=== PATIENT | female | born 1975 | race Caucasian/White ===

== ENCOUNTER 2018-10-22 05:54 | Inpatient (IN) | payer OTHER ==
[2018-10-08 12:39] VITALS: BMI 38.9
[2018-10-22] MEDS ORDERED: GENTAMICIN SO4 80 MG/2 ML VIAL ONE (07:12)
[2018-10-22] MEDS ORDERED: BUPIVACAINE HCL/PF 2.5 MG/ML - 30 ML VIAL IJ ONE (07:12)
[2018-10-22] MEDS ORDERED: POLYMYXIN B SULFATE 500,000 UNIT VIAL ONE (07:12)
[2018-10-22] MEDS ORDERED: PROPOFOL 20 ML ONE ×4 (07:25)
[2018-10-22] MEDS ORDERED: DEXAMETHASONE SOD PHOSPHATE/PF 10 MG/ML SDV ONE (07:25)
[2018-10-22] MEDS ORDERED: MIDAZOLAM HCL 2 MG/2 ML SINGLE DOSE VIAL ONE ×2 (07:25→07:26)
[2018-10-22] MEDS ORDERED: BUPIVACAINE HCL/PF (5 MG/ML) 30 ML VIAL IJ ONE (07:25)
[2018-10-22] MEDS ORDERED: fentaNYL CITRATE 250 MCG/5 ML VIAL ONE (07:25)
[2018-10-22] MEDS ORDERED: SUCCINYLCHOLINE CHLORIDE 200 MG/10 ML VIAL ONE (07:26)
[2018-10-22] MEDS ORDERED: ROCURONIUM BROMIDE 50 MG/5 ML VIAL ONE (07:26)
--- NOTE | 2018-10-22 08:06 | HP ---
Admitting History and Physical - Admission Chief Complaint: Morbid obesity History Source: Patient Limitations to Obtaining History: No Limitations - Past Medical History Cardiovascular: Yes: HTN ...LMP: 09/24/18 - Past Surgical History Additional Past Surgical History: Per patient: Left shoulder surgery Bilateral knee surgery Lower back surgery - Advance Directives Advance Directives: Yes: Health Care Proxy - Smoking History Smoking history: Former smoker Have you smoked in the past 12 months: No Aproximately how many cigarettes per day: 4 If you are a former smoker, when did you quit?: 2017 - Alcohol/Substance Use Hx Alcohol Use: No Home Medications - Allergies Allergies/Adverse Reactions: Allergies Allergy/AdvReac Type Severity Reaction Status Date / Time No Known Allergies Allergy Verified 10/08/18 12:31 - Home Medications Home Medications: Ambulatory Orders Hydrochlorothiazide [Hctz -] 12.5 mg PO DAILY 10/08/18 Family Disease History - Family Disease History Family History: Unremarkable Review of Systems - Review of Systems Constitutional: denies: Chills, Fever HENT: reports: No Symptoms Neck: reports: No Symptoms Cardiovascular: reports: No Symptoms Respiratory: reports: No Symptoms Gastrointestinal: reports: No Symptoms Neurological: reports: No Symptoms Pain Intensity: 0 Physical Examination Vital Signs: Vital Signs Temperature 98 F 10/22/18 06:40 Pulse Rate 78 10/22/18 06:40 Respiratory Rate 18 10/22/18 06:40 Blood Pressure 148/90 10/22/18 06:40 O2 Sat by Pulse Oximetry (%) Constitutional: Yes: Calm HENT: Yes: WNL Neck: Yes: WNL Cardiovascular: Yes: WNL Respiratory: Yes: Regular Gastrointestinal: Yes: Soft, Abdomen, Obese. No: Tenderness Neurological: Yes: Alert, Oriented Problem List - Problems (1) Morbid obesity due to excess calories Code(s): E66.01 - MORBID (SEVERE) OBESITY DUE TO EXCESS CALORIES (2) BMI 38.0-38.9,adult Code(s): Z68.38 - BODY MASS INDEX (BMI) 38.0-38.9, ADULT (3) Hypertension Code(s): I10 - ESSENTIAL (PRIMARY) HYPERTENSION Qualifiers: Hypertension type: unspecified Qualified Code(s): I10 - Essential (primary ) hypertension Assessment/Plan Laparoscopic possible open vertical sleeve gastrectomy possible liver biopsy
[2018-10-22] MEDS ORDERED: KETOROLAC TROMETHAMINE 30 MG/1 ML VIAL ONE (08:48)
[2018-10-22] MEDS ORDERED: ONDANSETRON 4 MG/2 ML VIAL ONE (08:48)
[2018-10-22] MEDS ORDERED: ceFAZolin SODIUM 1 GM VIAL ONE (08:48)
[2018-10-22] MEDS ORDERED: DEXAMETHASONE SOD PHOSPHATE 4 MG/1 ML VIAL ONE (08:48)
[2018-10-22] MEDS ORDERED: DESFLURANE GAS 240 ML BOTTLE IH ONE (09:25)
[2018-10-22] MEDS ORDERED: NEOSTIGMINE METHYLSULFATE 0.5 MG/ML - 10 ML MDV ONE (09:58)
--- NOTE | 2018-10-22 10:13 | OP ---
Operative Note - Note: Operative Date: 10/22/18 Pre-Operative Diagnosis: Morbid obesity. BMI 38.9. Hypertension Operation: Laparoscopic vertical sleeve gastrectomy, wedge liver biopsy Post-Operative Diagnosis: Same as Pre-op (as well as hepatomegaly) Surgeon: Brent Bridges Acid Supervisor: Opal Nieves Anesthesia: General Specimens Removed: Greater curvature of stomach. Liver biopsy Estimated Blood Loss (mls): 30 Drains & Tubes with Location: 36 Fr Bougie Operative Report Dictated: Yes
[2018-10-22] MEDS ORDERED: ACETAMINOPHEN 1000 MG/100 ML VIAL (NON FORMULARY) IVPB SCH (10:15)
[2018-10-22] MEDS ORDERED: SODIUM CHLORIDE 1,000 ML IV SCH (10:15)
[2018-10-22] MEDS ORDERED: METOCLOPRAMIDE HCL INJECTION 10 MG/2 ML VIAL IVPUSH SCH (10:15)
[2018-10-22] MEDS ORDERED: PROMETHAZINE HCL 25 MG/1 ML VIAL ONE (10:17)
--- NOTE | 2018-10-22 10:22 | SURG ---
Surgery Stretcher Operator Note Stretcher Operator: Opal Nieves PA-C Date of Service: 10/22/18 Diagnosis: Morbid obesity. BMI 38.9. Hypertension Procedure: Laparoscopic vertical sleeve gastrectomy, wedge liver biopsy I was present for the entirety of the operative procedure. For further detail, please refer to operative report. Visit type - Case Type Case Type: Scheduled - Emergency Emergency Visit: No - New patient This patient is new to me today: Yes Date on this admission: 10/22/18
[2018-10-22 11:01] LABS: HEMATOCRIT 42.9 % (32.4-45.2); MCH 28.9 pg (25.7-33.7); MCHC 32.7 g/dl (32.0-36.0); MEAN CELL VOLUME 88.3 fl (80-96); MEAN PLT VOLUME 8.2 fl (7.5-11.1); PLATELET COUNT 310 K/MM3 (134-434); RBC 4.86 M/mm3 (3.60-5.2); RDW 13.9 % (11.6-15.6); WHITE BLOOD COUNT 13.2 K/mm3 (4.0-10.8)
[2018-10-22] MEDS ORDERED: FAMOTIDINE 20 MG/50 ML IVPB 20 MG/50 ML MG IVPB ONE (11:04)
[2018-10-22 11:12] LABS: ALBUMIN 4.2 g/dl (3.4-5.0); ALK PHOS 61 U/L (45-117); ANION GAP 10 MMOL/L (8-16); BILIRUBIN,TOTAL 0.6 mg/dl (0.2-1); BLOOD UREA NITROGEN 17 mg/dl (7-18); CALCIUM 8.9 mg/dl (8.5-10); CHLORIDE 102 mmol/L (98-107); CO2 24 mmol/L (21-32); CREATININE 0.8 mg/dl (0.55-1.3); GLUCOSE,RANDOM 154 mg/dl (74-106); POTASSIUM 3.8 mmol/L (3.5-5.1); SGOT/AST 42 U/L (15-37); SGPT/ALT 37 U/L (13-61); SODIUM 136 mmol/L (136-145); TOT PROT 7.1 g/dl (6.4-8.2)
[2018-10-22] MEDS ORDERED: FAMOTIDINE 20 MG PREMIXED IVPB IVPB ONE (11:15)
[2018-10-22] MEDS: HYDROmorphone HCL CARPU-JECT 2 MG/1 ML DISP.SYRIN IVPB PRN ×3 (11:40→21:26)
[2018-10-22] MEDS ORDERED: HYDROmorphone HCL 0.5 MG/0.5 ML SYRINGE ONE (11:42)
[2018-10-22] MEDS ORDERED: LACTATED RINGERS SOLUTION 1,000 ML IV SCH (12:00)
[2018-10-22] MEDS: ONDANSETRON 4 MG/2 ML VIAL IVPUSH SCH ×2 (13:31→18:17)
[2018-10-22] MEDS: METOCLOPRAMIDE HCL INJECTION 10 MG/2 ML VIAL IVPUSH SCH ×2 (15:26→20:19)
[2018-10-22] MEDS: ACETAMINOPHEN 1000 MG/100 ML VIAL (NON FORMULARY) IVPB SCH (18:18)
--- NOTE | 2018-10-22 20:05 | SPEC ---
DATE OF OPERATION: 10/22/2018 SURGEON: Brent Bridges MD BANQUET FOOD SERVER: MARY Castellon PREOPERATIVE DIAGNOSES: 1. Morbid obesity. 2. Uncontrolled hypertension. 3. Body mass index of 38.9. POSTOPERATIVE DIAGNOSES: 1. Morbid obesity. 2. Uncontrolled hypertension. 3. Body mass index of 38.9. 4. Hepatomegaly. PROCEDURE: 1. Laparoscopic vertical sleeve gastrectomy. 2. Laparoscopic wedge liver biopsy. SPECIMEN: 1. Greater curvature of the stomach. 2. Liver biopsy. ESTIMATED BLOOD LOSS: 30 mL. DRAINS: None. ANESTHESIA: GET. BOUGIE SIZE: 36-Cymro. REASON FOR PROCEDURE: This is a 43-year-old female who presents to the office for weight loss options. After describing different options, she decided to proceed with a laparoscopic, possible open, vertical sleeve gastrectomy, possible liver biopsy. The risks and benefits of the procedure were explained. RISKS AND BENEFITS: After describing the different options for weight loss management, the patient decided to proceed with a laparoscopic, possible open vertical sleeve gastrectomy. The patient was seen by the respective subspecialties and cleared for surgery. The risks and benefits of the procedure were explained. These included bleeding, infection, hernia, CA, DVT, PE, injury to surrounding structures including the liver, colon, bowel, spleen, esophagus, vessel injury, nerve injury, weight regain, gastric leak, staple line leak, sleeve leak, obstruction, vitamin deficiency, hair loss and as some of the possible complications. The patient understood and signed informed consent. DESCRIPTION OF PROCEDURE: The patient was placed supine on the operating room table. The patient underwent general endotracheal intubation. The arms were brought out at 90 degrees and secured. A footboard was placed and the legs were secured laterally with padding. The abdomen was prepped and draped in the usual sterile fashion. A timeout was performed. An incision was made in the left upper quadrant and a Veress needle inserted. Pneumoperitoneum was established. Subsequently, the Veress needle was removed and a 5-mm trocar was placed under direct visualization with the laparoscope. The laparoscopic camera was then inserted and inspection of the abdominal cavity was performed. An incision was then made in the supraumbilical area and a 15-mm trocar was placed under direct visualization. A 5-mm trocar was then placed in the right upper quadrant and a 5-mm trocar was placed below the left subcostal margin. A stab wound was made in the subxiphoid area and a Bell clamp inserted and removed to dilate the tract. A Elle liver retractor was inserted. The post was secured at the bedside by the nursing staff. The patient was placed in steep reverse Trendelenburg position and the Elle liver retractor was used to secure the liver towards the anterior abdominal wall. The pylorus was identified and 6 cm proximal to it, the lesser sac was entered using the LigaSure device. All lateral attachments to the greater curvature of the stomach, including the short gastric vessels, were ligated using the LigaSure device toward the gastrosplenic and gastrophrenic ligaments. Once this was done in its entirety, it was confirmed that all tubes within the nasal or oropharyngeal cavity, including a temperature probe, was removed by Anesthesia. The bougie was then inserted by Anesthesia. Transection of the stomach was then begun staying adjacent to the bougie but away from the angularis. Transection of the stomach was performed near the portion of the stomach where the lesser sac was entered. Two laparoscopic Endo-TURNER black reg were used at this location. Laparoscopic Endo TURNER purple staple loads were then used for the remainder of the transection until the greater curvature of the stomach was fully transected. This was done staying close to the bougie. Care was taken to stay away from the angle of His cephalad. The staple line was then inspected. Hemostasis was identified. A leak test was then performed. It was clamped distally to the staple line. Irrigation solution was placed in the left upper quadrant and air was insufflated by Anesthesia into the sleeve. No leaks were identified. No obstruction was identified. This was done through the entirety of the staple line. In addition, an upper endoscopy was performed. The endoscope was placed into the patients mouth and the entirety of the esophagus, GE junction, gastric pouch and staple line were inspected. No obstruction or leak was noted. The stomach was suctioned and the endoscope removed fully intact. At this point, the irrigation solution was suctioned and again, hemostasis was noted. A wedge liver biopsy was then performed. The left lobe of the liver was identified and a portion of the edge was grasped. Using electrocautery, a wedge of the liver was excised. This was removed and sent off the field as specimen. Hemostasis at the site of the wedge liver biopsy was attained using electrocautery. The 15-mm supraumbilical trocar was then removed and the greater curvature specimen removed from the site using a sponge stick hernandez. The specimen was inspected and a Veress needle inserted. The specimen insufflated adequately and no leak was identified. The staple line was noted to be intact. A Kenneth-Rafael device was then used to close the fascia with a 0 Vicryl suture at the site. Again, hemostasis was noted. The Elle liver retractor was then removed under direct visualization. Pneumoperitoneum was desufflated and the fascial sutures were secured. Hemostasis was noted at all incision sites and Marcaine was injected at all incision sites. All incision sites were closed using 4-0 Biosyn. Sterile dressings were applied. The patient tolerated the procedure well and was transferred to the recovery room in stable condition. The patient was transferred to telemetry for further monitoring. Kenan MONROE/[id number]
[2018-10-22] MEDS: ENOXAPARIN NA (PORCINE) 40 MG/0.4 ML DISP.SYRIN SQ SCH (21:25)
[2018-10-22] MEDS: FAMOTIDINE 20 MG/50 ML IVPB 20 MG/50 ML MG IVPB SCH (21:26)
[2018-10-23] MEDS: ONDANSETRON 4 MG/2 ML VIAL IVPUSH SCH ×5 (00:09→14:26)
[2018-10-23] MEDS: ACETAMINOPHEN 1000 MG/100 ML VIAL (NON FORMULARY) IVPB SCH ×2 (00:28→06:00)
[2018-10-23] MEDS: HYDROmorphone HCL CARPU-JECT 2 MG/1 ML DISP.SYRIN IVPB PRN ×3 (02:48→09:50)
[2018-10-23] MEDS: METOCLOPRAMIDE HCL INJECTION 10 MG/2 ML VIAL IVPUSH SCH ×3 (02:49→15:30)
[2018-10-23 07:48] LABS: HEMATOCRIT 38.4 % (32.4-45.2); HEMOGLOBIN 12.8 GM/dl (10.7-15.3); MCH 29.2 pg (25.7-33.7); MCHC 33.2 g/dl (32.0-36.0); MEAN CELL VOLUME 87.8 fl (80-96); MEAN PLT VOLUME 8.4 fl (7.5-11.1); PLATELET COUNT 305 K/MM3 (134-434); RBC 4.38 M/mm3 (3.60-5.2); RDW 13.8 % (11.6-15.6)
[2018-10-23 07:52] LABS: ALBUMIN 3.6 g/dl (3.4-5.0); ALK PHOS 51 U/L (45-117); ANION GAP 8 MMOL/L (8-16); BILIRUBIN,TOTAL 0.5 mg/dl (0.2-1); BLOOD UREA NITROGEN 13 mg/dl (7-18); CALCIUM 7.9 mg/dl (8.5-10); CHLORIDE 104 mmol/L (98-107); CO2 24 mmol/L (21-32); CREATININE 0.5 mg/dl (0.55-1.3); GLUCOSE,RANDOM 91 mg/dl (74-106); POTASSIUM 3.7 mmol/L (3.5-5.1); SGOT/AST 41 U/L (15-37); SGPT/ALT 43 U/L (13-61); SODIUM 136 mmol/L (136-145); TOT PROT 6.3 g/dl (6.4-8.2)
--- NOTE | 2018-10-23 08:54 | PN ---
Progress Note (short form) - Note Progress Note: POD#1 Pt with complaints of mild epigastric burning. No CP. Nausea which resolved overnight. No emesis. OOB and ambulated in the hallway. Voiding without difficulty. Vital Signs Period Temp Pulse Resp BP Sys/Maldonado Pulse Ox Last 24 Hr 98 F-98.6 F 62-85 17-20 109-157/67-99 95-99 GEN: A&0x3, NAD CV: RRR Lungs: CTA b/l ABD: soft, non-distended, inc tenderness. Inc c/d/i LE: no calf tenderness or swelling noted b/l. SCDs in place. CBC, BMP 10/23/18 07:05 10/23/18 07:05 Laboratory Tests 10/22/18 10/22/18 10:15 10:30 WBC 13.2 H Hgb 14.0 Hct 42.9 Plt Count 310 Sodium 136 Potassium 3.8 Chloride 102 Carbon Dioxide 24 Anion Gap 10 BUN 17 Creatinine 0.8 A/P: 43 yo female s/p lap vertical sleeve gastrectomy Plan for UGI series today, npo until after exam and results negative for leak /obstruction Wean IVF once tolerating oral diet DVT ppx with ambulation, SCDs, Lovenox SQ D/w. Dr. Bridges Incentive spirometer <Glory Walls - Last Filed: 10/23/18 09:03> - Note Progress Note: Agree POD 1 Pain controlled AVSS UGI: no leak/obstruction Clears Discharge home <Brent Bridges - Last Filed: 10/23/18 11:56> Problem List - Problems (1) Morbid obesity due to excess calories Code(s): E66.01 - MORBID (SEVERE) OBESITY DUE TO EXCESS CALORIES (2) BMI 38.0-38.9,adult Code(s): Z68.38 - BODY MASS INDEX (BMI) 38.0-38.9, ADULT (3) Hypertension Code(s): I10 - ESSENTIAL (PRIMARY) HYPERTENSION Qualifiers: Hypertension type: unspecified Qualified Code(s): I10 - Essential (primary ) hypertension <Brent Bridges - Last Filed: 10/23/18 11:56>
[2018-10-23] MEDS: ENOXAPARIN NA (PORCINE) 40 MG/0.4 ML DISP.SYRIN SQ SCH (09:51)
[2018-10-23] MEDS: FAMOTIDINE 20 MG/50 ML IVPB 20 MG/50 ML MG IVPB SCH (09:51)
[2018-10-23] MEDS ORDERED: oxyCODONE HCL 5 MG TABLET PO PRN (11:54)
[2018-10-23] MEDS ORDERED: SODIUM CHLORIDE 1,000 ML IV SCH (12:00)
[2018-10-23 14:21] VITALS: BP 138/82; PULSE 71; TEMP 98.2
[2018-10-23] MEDS ORDERED: oxyCODONE HCL 5 MG TABLET PO ONE (16:30)
--- NOTE | 2018-10-24 17:48 | PATH ---
Surgical Pathology Report Patient Name: YOLANDA BRAUN Med. Rec. #: [id number] /Age/Gender: 1975 (Age: 43) / F Account: [id number] Location: [facility] MED[facility] Taken: 10/22/2018 Received: 10/22/2018 Reported: 10/24/2018 Physicians: Brent Bridges M.D. Specimen(s) Received A: STOMACH, GREATER CURVATURE B: LIVER BIOPSY Clinical History Morbid obesity Final Diagnosis A. STOMACH, GREATER CURVATURE, LAPAROSCOPIC VERTICAL SLEEVE GASTRECTOMY: PORTION OF STOMACH WITH MILD CHRONIC GASTRITIS. IMMUNOHISTOCHEMICAL STAIN FOR H. PYLORI IS NEGATIVE. B. LIVER, BIOPSY: LIVER PARENCHYMA WITH MILD STEATOSIS (~10%). NO INCREASE IN IRON AND FIBROSIS ON PERFORMED SPECIAL STAINS (IRON AND TRICHROME). Electronically Signed Maida Hanna M.D. Gross Description A. Received in formalin, labeled "greater curvature of stomach," is a 99 gram, 18.0 x 2.8 x 2.4 cm. portion of stomach with a stapled margin of resection. The serosa is denise-cloud with minimal attached fat. The mucosa is denise-pink with normal folds. No mucosal masses are identified. Staffing Administrator sections are submitted in one cassette. B. Received in formalin labeled "liver biopsy," is a 2.3 x 1.0 x 0.9 cm denise, irregular portion of soft tissue, consistent with a portion of liver. The specimen is sectioned and entirely submitted in one cassette. /10/23/2018 saudi10/23/2018
== END 2018-10-23 19:12 | disposition home or self-care (01) | DRG 403 ==
LOC: FM/S 05:54
PROVIDERS: ADMIT Surgery; ATTEND Surgery
PROC: 0DB64Z3 Excision of Stomach, Percutaneous Endoscopic Approach, Vertical (ICD-10-PCS; principal; 2018-10-22 08:52)
PROC: 0FB24ZX Excision of Left Lobe Liver, Percutaneous Endoscopic Approach, Diagnostic (ICD-10-PCS; 2018-10-22 08:52)
DX: E66.01 Morbid (severe) obesity due to excess calories (principal); Z68.38 Body mass index [BMI] 38.0-38.9, adult; I10 Essential (primary) hypertension; R16.0 Hepatomegaly, not elsewhere classified; Z87.891 Personal history of nicotine dependence
CPT/HCPCS: 36415; 74241-TC-FY; 80053; 84703; 85027; 88305-TC; 94760; J0131; J7030

== ENCOUNTER → 2018-11-14 | Emergency (ER) | payer OTHER ==
[2018-11-14 15:29] VITALS: BP 133/90; PULSE 87; TEMP 98; BMI 36.1
--- NOTE | 2018-11-14 15:29 | PDOC ---
Rapid Medical Evaluation Medical Evaluation: Allergies Allergy/AdvReac Type Severity Reaction Status Date / Time No Known Allergies Allergy Verified 10/08/18 12:31 I have performed a brief in-person evaluation of this patient. The patient presents with a chief complaint of: s/p gastric sleeve 10/22/18, w/ periumbilical abd pain x 2-3 days; saw her surgeon last week and everything was fine then; denies n/v/d; spoke to her surgeon today as well, who told her to apply warm compresses, but patient wanted further evaluation Pertinent physical exam findings: Patient not comfortable with having abdomen palpated I have ordered the following: Labs The patient will proceed to the ED for further evaluation. 11/14/18 15:24
[2018-11-14 15:59] LABS: BASO % 0.9 % (0-2.0); EOS % 1.7 % (0-4.5); HEMATOCRIT 40.9 % (32.4-45.2); HEMOGLOBIN 14.2 GM/dL (10.7-15.3); LYMPH % 29.5 % (8-40); MCH 30.4 pg (25.7-33.7); MCHC 34.8 g/dl (32.0-36.0); MEAN CELL VOLUME 87.4 fl (80-96); MONO % 7.7 % (3.8-10.2); NEUT % 60.2 % (42.8-82.8); PLATELET COUNT 254 K/MM3 (134-434); RBC 4.68 M/mm3 (3.60-5.2); RDW 15.4 % (11.6-15.6); WHITE BLOOD COUNT 7.4 K/mm3 (4.0-10.0)
[2018-11-14 16:39] LABS: ALBUMIN 4.1 g/dl (3.4-5.0); ALK PHOS 55 U/L (45-117); ANION GAP 8 MMOL/L (8-16); BILIRUBIN,TOTAL 0.4 mg/dL (0.2-1); BLOOD UREA NITROGEN 17 mg/dL (7-18); CALCIUM 9.1 mg/dL (8.5-10.1); CHLORIDE 105 mmol/L (98-107); CO2 23 mmol/L (21-32); CREATININE 0.5 mg/dL (0.55-1.3); GLUCOSE,RANDOM 73 mg/dL (74-106); POTASSIUM 4.3 mmol/L (3.5-5.1); SGOT/AST 21 U/L (15-37); SGPT/ALT 21 U/L (13-61); SODIUM 137 mmol/L (136-145); TOT PROT 7.2 g/dl (6.4-8.2)
--- NOTE | 2018-11-14 17:29 | PDOC ---
History of Present Illness - General Chief Complaint: Pain, Acute Stated Complaint: ABD PAIN Time Seen by Provider: 11/14/18 15:24 History Source: Patient Exam Limitations: Clinical Condition - History of Present Illness Initial Comments: 11/14/18 17:24 Patient with history of gastric bypass done a month ago with no other significant past medical history present with complaint of periumbilical pain over surgical incision area from laparoscopic surgery. Patient report she called her general surgeon Dr. MCDANIEL who told her symptoms likely from muscle strain by has been having pains with does not improve with Tylenol. Denies nausea, vomiting. Patient is concerned staple used to surgery might have come off. Denies fever, chills. Denies any other symptoms. Patient reported has not been sexually active for over 3 months. Timing/Duration: other (3 days) Past History - Past Medical History Allergies/Adverse Reactions: Allergies Allergy/AdvReac Type Severity Reaction Status Date / Time No Known Allergies Allergy Verified 10/08/18 12:31 Home Medications: Ambulatory Orders NK [No Known Home Medication] 11/14/18 Anemia: No Asthma: No Cancer: No Cardiac Disorders: No CVA: No COPD: No CHF: No Dementia: No Diabetes: No GI Disorders: No Disorders: No HTN: Yes Hypercholesterolemia: No Liver Disease: No Seizures: No Thyroid Disease: No - Surgical History Abdominal Surgery: Yes (Gastric Sleeve 09/2018) Appendectomy: No Cardiac Surgery: No Cholecystectomy: No Lung Surgery: No Neurologic Surgery: No Orthopedic Surgery: Yes (RIGHT AND LEFT ARTHROSCOPY, LEFT SHOULDER ROTATOR CUFF REPAIR) - Suicide/Smoking/Psychosocial Hx Smoking History: Former smoker Have you smoked in the past 12 months: No Number of Cigarettes Smoked Daily: 4 If you are a former smoker, when did you quit?: 2 years ago Information on smoking cessation initiated: No Hx Alcohol Use: No Drug/Substance Use Hx: No Substance Use Type: None Hx Substance Use Treatment: No Review of Systems - Review of Systems Able to Perform ROS?: Yes Is the patient limited Wolof proficient: No Constitutional: No: Fever, Malaise, Weakness HEENTM: No: Symptoms Reported Respiratory: No: Symptoms reported Cardiac (ROS): No: Symptoms Reported ABD/GI: Yes: See HPI, Abdominal cramping (jose-umbilical pain). No: Constipated , Diarrhea, Nausea, Rectal Bleeding, Vomiting, Tarry Stools : No: Discharge, Frequency, Hematuria, Urgency All Other Systems: Reviewed and Negative *Physical Exam - Vital Signs Last Vital Signs Temp Pulse Resp BP Pulse Ox 98 F 87 20 133/90 97 11/14/18 15:24 11/14/18 15:24 11/14/18 15:24 11/14/18 15:24 11/14/18 15:24 - Physical Exam Comments: 11/14/18 17:27 GENERAL: Well developed, well nourished. Awake and alert. No acute distress. HEENT: Normocephalic, atraumatic. PERRLA, EOMI. No conjunctival pallor. Sclera are non-icteric. Moist mucous membranes. Oropharynx is clear. NECK: Supple. Full ROM. CARDIOVASCULAR: Regular rate and rhythm. No murmurs, rubs, or gallops. Distal pulses are 2+ and symmetric. PULMONARY: No evidence of respiratory distress. Lungs clear to auscultation bilaterally. No wheezing, rales or rhonchi. ABDOMINAL: mild jose-umbilical tenderness. 5 areas of small laparoscopic well healed incisions on abdomen Soft. Non-distended. No rebound or guarding. No organomegaly. Normoactive bowel sounds. SKIN: Warm and dry. no cyanosis Normal capillary refill. No rashes. No jaundice. NEUROLOGICAL: Alert, awake, appropriate. Gait is normal without ataxia. PSYCHIATRIC: Cooperative. Good eye contact. Appropriate mood General Appearance: Yes: Nourished, Appropriately Dressed, Mild Distress Moderate Sedation - Procedure Monitoring Vital Signs: Procedure Monitoring Vital Signs Temperature 98 F 11/14/18 15:24 Pulse Rate 87 11/14/18 15:24 Respiratory Rate 20 11/14/18 15:24 Blood Pressure 133/90 11/14/18 15:24 O2 Sat by Pulse Oximetry (%) 97 11/14/18 15:24 ED Treatment Course - LABORATORY CBC & Chemistry Diagram: 11/14/18 15:40 11/14/18 15:40 - ADDITIONAL ORDERS Additional order review: Laboratory Results 11/14/18 15:40 Sodium 137 Potassium 4.3 Chloride 105 Carbon Dioxide 23 Anion Gap 8 BUN 17 Creatinine 0.5 L Creat Clearance w eGFR 135.30 Random Glucose 73 L Calcium 9.1 Total Bilirubin 0.4 AST 21 ALT 21 Alkaline Phosphatase 55 Total Protein 7.2 Albumin 4.1 11/14/18 15:40 RBC 4.68 MCV 87.4 MCHC 34.8 RDW 15.4 MPV 9.0 Neutrophils % 60.2 Lymphocytes % 29.5 Monocytes % 7.7 Eosinophils % 1.7 Basophils % 0.9 Medical Decision Making - Medical Decision Making 11/14/18 17:29 Patient with history of gastric bypass a month ago present with complaint of periumbilical pain and pain to laparoscopic incisions areas for 3 days. Clinical exam significant for mild tenderness over 5 small laparoscopic well- healed incision to periumbilical, right lower right upper, left lower lobe after quadrant. No erythema or evidence of infection to incision site area CBC and chemistry lab unremarkable. UA and urine test ordered. Abdominal CAT scan ordered to rule out acute pathology. 11/14/18 19:12 urine hcg negative. patient sent for abdominal CT. Patient signed out to evening MARINE RIGGER Matt *DC/Admit/Observation/Transfer Diagnosis at time of Disposition: Abdominal pain Qualifiers: Abdominal location: periumbilical Qualified Code(s): R10.33 - Periumbilical pain - Discharge Dispostion Condition at time of disposition: Stable Decision to Admit order: No - Referrals Referrals: Fernando Neil MD [Primary Care Provider] - - Patient Instructions - Post Discharge Activity
[2018-11-14 18:10] LABS: EPI CELLS 15.4 /HPF (FEW); PH,URINE 5.5 (5.0-8.0); URINE APPEARANCE CLOUDY; URINE BACTERIA 423.414 /hpf (NEGATIVE); URINE BILIRUBIN NEGATIVE (<2.0 mg/dL); URINE CASTS REVIEW /hpf (NEGATIVE); URINE COLOR DK YELLOW; URINE GLUCOSE (UA) NEGATIVE (NEGATIVE); URINE KETONE 4+ (NEGATIVE); URINE LEUK ESTERASE NEGATIVE (NEGATIVE); URINE NITRITE NEGATIVE (NEGATIVE); URINE PROTEIN NEGATIVE (NEGATIVE); URINE RBC 4 /hpf (0-3); URINE WBC 4 /hpf (3-5)
--- NOTE | 2018-11-14 19:36 | PDOC ---
*Physical Exam - Vital Signs Last Vital Signs Temp Pulse Resp BP Pulse Ox 98 F 87 20 133/90 97 11/14/18 15:24 11/14/18 15:24 11/14/18 15:24 11/14/18 15:24 11/14/18 15:24 ED Treatment Course - LABORATORY CBC & Chemistry Diagram: 11/14/18 15:40 11/14/18 15:40 - ADDITIONAL ORDERS Additional order review: Laboratory Results 11/14/18 11/14/18 11/14/18 17:37 17:34 15:40 Sodium 137 Potassium 4.3 Chloride 105 Carbon Dioxide 23 Anion Gap 8 BUN 17 Creatinine 0.5 L Creat Clearance w eGFR 135.30 Random Glucose 73 L Calcium 9.1 Total Bilirubin 0.4 AST 21 ALT 21 Alkaline Phosphatase 55 Total Protein 7.2 Albumin 4.1 Urine Color Dk yellow Urine Appearance Cloudy Urine pH 5.5 Ur Specific [place] 1.038 H Urine Protein Negative Urine Glucose (UA) Negative Urine Ketones 4+ H Urine Blood Negative Urine Nitrite Negative Urine Bilirubin Negative Urine Urobilinogen 1.0 Ur Leukocyte Esterase Negative Urine WBC (Auto) 4 Urine RBC (Auto) 4 Urine Casts (Auto) Review A* U Epithel Cells (Auto) 15.4 Urine Bacteria (Auto) 423.414 Urine RBC No Result Required. Urine HCG, Qual Negative 11/14/18 15:40 RBC 4.68 MCV 87.4 MCHC 34.8 RDW 15.4 MPV 9.0 Neutrophils % 60.2 Lymphocytes % 29.5 Monocytes % 7.7 Eosinophils % 1.7 Basophils % 0.9 Progress Note - Progress Note Progress Note: Received signout from MARY Noguera. Briefly this is a 43-year-old woman who is one month status post gastric bypass presents with periumbilical pain near laparoscopic incision for the past 3 days. Patient spoke with her surgeon who said this is likely muscular patient continued emergency department for second opinion. CBC and CMP are unremarkable. Urinalysis reveals casts. Patient is pending results of abdominal CT to rule out surgical leakage. *DC/Admit/Observation/Transfer Diagnosis at time of Disposition: Abdominal pain Qualifiers: Abdominal location: periumbilical Qualified Code(s): R10.33 - Periumbilical pain - Discharge Dispostion Condition at time of disposition: Stable - Referrals Referrals: Fernando Neil MD [Primary Care Provider] - - Patient Instructions - Post Discharge Activity
== END | disposition home or self-care (01) ==
LOC: JER 15:20
DX: R10.33 Periumbilical pain (principal); Z87.891 Personal history of nicotine dependence; Z98.84 Bariatric surgery status; I10 Essential (primary) hypertension
CPT/HCPCS: 36415; 80053; 81003; 84703; 85025; 99283-25